=== PATIENT | male | born 1960 | race Caucasian/White ===

== ENCOUNTER 2019-12-01 05:32 | Day surgery (SDC) | payer OTHER ==
[2019-11-24 15:53] LABS: BASOPHILS # (AUTO) 0.1 X10'3 (0-0.2); BASOPHILS % (AUTO) 0.9 % (0-1); EOSINOPHILS # (AUTO) 0.2 X10'3 (0-0.9); EOSINOPHILS % (AUTO) 2.6 % (0-6); LYMPHOCYTES # (AUTO) 1.9 X10'3 (1.1-4.8); LYMPHOCYTES % (AUTO) 30.1 % (21-51); MEAN CORPUSCULAR HEMOGLOBIN 31.7 PG (27.0-31.0); MEAN CORPUSCULAR HGB CONC 33.6 g/dL (33.0-36.5); MEAN CORPUSCULAR VOLUME 94.4 FL (78-98); MEAN PLATELET VOLUME 6.6 FL (7.4-10.4); MONOCYTES # (AUTO) 0.7 X10'3 (0-0.9); MONOCYTES % (AUTO) 11.5 % (2-12); NEUTROPHILS # (AUTO) 3.5 X10'3 (1.8-7.7); NEUTROPHILS % (AUTO) 54.9 % (42-75); PRE OP HEMATOCRIT 47.2 % (42.0-52.0); PRE OP HEMOGLOBIN 15.9 g/dL (14.0-17.9); PRE OP PLATELET COUNT 307 X10'3 (140-440); RED CELL DISTRIBUTION WIDTH 13.7 % (11.5-14.5)
[2019-11-24 16:06] LABS: ALBUMIN 3.8 G/DL (3.4-5.0); ALBUMIN/GLOBULIN RATIO 1.2 (1.1-1.5); ALKALINE PHOSPHATASE 60 IU/L (46-116); BLOOD UREA NITROGEN 21 MG/DL (7-18); BUN/CREATININE RATIO 16.5 (5.4-32.0); CHLORIDE 107 MMOL/L (99-107); CREATININE 1.27 MG/DL (0.60-1.10); PRE OP ALT 21 U/L (30-65); PRE OP ANION GAP 6 (8-16); PRE OP AST 17 U/L (10-37); PRE OP BILIRUB, TOTAL 0.8 MG/DL (0.0-1.0); PRE OP GLUCOSE 96 MG/DL (70-104); PRE OP POTASSIUM 3.9 MMOL/L (3.4-5.1); PRE OP SODIUM 143 MMOL/L (135-145); TOTAL CARBON DIOXIDE 30.1 MMOL/L (24-32); eGFR 58 ML/MIN
[2019-12-01] VITALS (20 sets, daily range): BP systolic 99–132; BP diastolic 60–86
[~2019-12-01] VITALS: Ht 182.9 cm; Wt 81.6 kg
[~2019-12-01 05:32] MED LIST: NO HOME MEDS; ceFAZolin 2gm in dextrose, iso 50 ML IV ONE; famotidine 20mg tablet PO ONE; ringers solution, lacted 1,000 ML IV SCH
[2019-12-01] MEDS ORDERED: LIDOcaine 1% (10mg/ml) 2ml vial ONE (05:55)
[2019-12-01] MEDS ORDERED: LIDOcaine 1% 30ml preserv. free vial ONE (06:39)
[2019-12-01] MEDS ORDERED: BUPIVAcaine/PF 2.5 mg/ml (0.25%) 30ml vial ONE (06:39)
[2019-12-01] MEDS ORDERED: fentaNYL/PF 50MCG/1 ML 2ML syringe ONE (07:17)
[2019-12-01] MEDS ORDERED: midazolam 2 mg/2 ml injection ONE (07:17)
[2019-12-01] MEDS ORDERED: sevoflurane 250ml liquid IH ONE (07:37)
[2019-12-01] MEDS ORDERED: ringers solution, lacted 1,000 ML IV SCH (08:31)
[2019-12-01] MEDS ORDERED: morphine 2 MG/ML inj. syringe IV PRN (08:35)
[2019-12-01] MEDS ORDERED: ondansetron/PF 4mg/2ml inj IV PRN (08:35)
[2019-12-01] MEDS ORDERED: meperidine/PF 25mg/ml syringe IV PRN ×3 (08:35)
[2019-12-01] MEDS ORDERED: morphine 4 MG/ML inj SYRINge IV PRN (08:35)
[2019-12-01] MEDS ORDERED: proCHLORperazine 10 MG/2 ml inj IV PRN (08:35)
[2019-12-01] MEDS ORDERED: bacitracin 15gm ointment TP ONE (09:06)
--- NOTE | 2019-12-01 09:20 | NUR ---
Received from OR via BED , accompanied by Anesthesiologist DR VALENTIN and report given by Anesthesiolgist. PATIENT WAKING UP, DENIES PAIN, V/S WNL, NEUROVASCULAR CHECKS INTACT, 20G PIV RUE, SCD ON, BANDAIDS TO LAP SIGHTS OF ABDOMEN CDI.
[2019-12-01] MEDS ORDERED: HYDROcodone/acetaminophen 5mg/325mg tablet PO PRN (09:35)
[2019-12-01] MEDS ORDERED: neostigmine methylsulfate 1 MG/ML 10ml vial ONE (10:42)
[2019-12-01] MEDS ORDERED: dexamethasone sod phosphate 4mg/ml inj. ONE (10:42)
[2019-12-01] MEDS ORDERED: rocuronium 10mg/ml inj IV ONE (10:42)
[2019-12-01] MEDS ORDERED: LIDOcaine 2% (20mg/ml) 5ml vial ONE (10:42)
[2019-12-01] MEDS ORDERED: propofol inj 20 ML IV ONE (10:42)
[2019-12-01] MEDS ORDERED: ondansetron/PF 4mg/2ml inj ONE (10:42)
[2019-12-01] MEDS ORDERED: glycopyrrolate 0.2mg/ml inj ONE (10:42)
[2019-12-01] MEDS ORDERED: LIDOcaine 2% 10ml TOPICAL JELLY (Urojet) MM ONE (13:05)
--- NOTE | 2019-12-01 13:18 | NUR ---
PATIENT UNABLE TO VOID FOR D/C/ WILL START F/C STRAIGHT CATH AND D/C HOME PER DR LANDERS ORDERS.
--- NOTE | 2019-12-01 13:41 | NUR ---
COUDE 16FRENCH CATH PLACED WITH 500CC OUT SO FAR AND STILL DRAINING URINE. NO COMPLICATIONS OBSERVED AT THIS TIME.
--- NOTE | 2019-12-01 13:47 | NUR ---
PATIENT GIVEN NURSING REFRENCE GUIDE FOR SOL CATH CARE AND MANAGMENT. I HAVE INSTRUCTED HIM VERBALLY AND DEMO HOW TO CARE AND DRAIN CATH WELL. PATIENT HAS VERBALIZED UNDERSTANDING AND EDUCATION PAMPHLET WAS ADDED TO HIS D/C PAPERWORK.
--- NOTE | 2019-12-01 14:00 | NUR ---
PATIENT A&OX4, STATES PAIN WELL CONTROLLED, V/S WNL, NEUROVASCULAR CHECKS INTACT, 20G PIV RUE D/C, SCD OFF, BANDAIDS TO LAP SIGHTS OF ABDOMEN CDI. F/C PLACED DESCRIBED IN PRIOR NOTE. I HAVE REVIEWED D/C INSTRUCTIONS WITH PATIENT AND HE HAS DEMO HOW TO DRAIN F/C AND 550CC EMPTIED. PATIENT D/C HOME WITH ALL BELONGINGS AND WAS GIVEN INSTRUCTION SHEET FOR F/C AND POST OP D/C INSTRUCTIONS FOR HOME. HE WILL RETURN TO DR OFFICE FOR F/C D/C IN [address] PEREZ. HE WAS GIVEN SCRIPT FOR [facility]. HIS GAVE TRANSPORT HOME.
== END 2019-12-01 14:00 | disposition home or self-care (01) ==
LOC: PAS 05:32
PROVIDERS: ATTEND Surgery
DX: K40.90 Unilateral inguinal hernia, without obstruction or gangrene, not specified as recurrent (principal); K42.0 Umbilical hernia with obstruction, without gangrene; D18.01 Hemangioma of skin and subcutaneous tissue; Z79.899 Other long term (current) drug therapy; Z72.89 Other problems related to lifestyle; Z11.59 Encounter for screening for other viral diseases; Z87.442 Personal history of urinary calculi; R20.2 Paresthesia of skin
CPT/HCPCS: 11400; 12031; 36415; 49587; 49650; 80053; 82948; 85025; 93005; C1781; J1100; J2001; J2175; J2250; J2270; J2405; J2704; J2710; J3010; J3490; J7120; S2900; U0003; A4215; A4618

== ENCOUNTER 2022-05-22 06:09 | Day surgery (SDC) | payer OTHER ==
[2022-05-16 14:29] LABS: ALBUMIN 3.6 G/DL (3.4-5.0); ALBUMIN/GLOBULIN RATIO 1.1 (1.1-1.5); ALKALINE PHOSPHATASE 72 IU/L (46-116); BASOPHILS % (AUTO) 0.8 % (0-1); BLOOD UREA NITROGEN 17 MG/DL (7-18); BUN/CREATININE RATIO 14.7 (5.4-32.0); CALCIUM 8.8 MG/DL (8.5-10.1); CHLORIDE 103 MMOL/L (99-107); CREATININE 1.16 MG/DL (0.60-1.10); EOSINOPHILS # (AUTO) 0.1 X10'3 (0-0.9); EOSINOPHILS % (AUTO) 2.8 % (0-6); LYMPHOCYTES # (AUTO) 1.4 X10'3 (1.1-4.8); LYMPHOCYTES % (AUTO) 28.7 % (21-51); MEAN CORPUSCULAR HEMOGLOBIN 31.2 PG (27.0-31.0); MEAN CORPUSCULAR HGB CONC 33.1 g/dL (33.0-36.5); MEAN CORPUSCULAR VOLUME 94.1 FL (78-98); MEAN PLATELET VOLUME 6.5 FL (7.4-10.4); MONOCYTES # (AUTO) 0.6 X10'3 (0-0.9); MONOCYTES % (AUTO) 12.7 % (2-12); NEUTROPHILS # (AUTO) 2.6 X10'3 (1.8-7.7); PRE OP ALT 24 U/L (30-65); PRE OP ANION GAP 5 (8-16); PRE OP AST 23 U/L (10-37); PRE OP BILIRUB, TOTAL 0.6 MG/DL (0.0-1.0); PRE OP GLUCOSE 93 MG/DL (70-104); PRE OP HEMATOCRIT 46.5 % (42.0-52.0); PRE OP HEMOGLOBIN 15.4 g/dL (14.0-17.9); PRE OP PLATELET COUNT 299 X10'3 (140-440); PRE OP POTASSIUM 3.9 MMOL/L (3.4-5.1); PRE OP SODIUM 140 MMOL/L (135-145); RED BLOOD COUNT 4.94 X10'6 (4.70-6.10); RED CELL DISTRIBUTION WIDTH 13.8 % (11.5-14.5); TOTAL CARBON DIOXIDE 31.9 MMOL/L (24-32); TOTAL PROTEIN 6.8 G/DL (6.4-8.2); eGFR 64 ML/MIN
[2022-05-22] VITALS (22 sets, daily range): BP systolic 94–126; BP diastolic 62–82
[~2022-05-22] VITALS: Ht 182.9 cm; Wt 84.3 kg
[~2022-05-22 06:09] MED LIST changes: +FLO0.4C PO; -NO HOME MEDS; -ceFAZolin 2gm in dextrose, iso 50 ML IV ONE; +ceFAZolin inj. 2,000 MG in dextrose 5%-water 100 ML IV ONE
[2022-05-22] MEDS ORDERED: LIDOcaine 1% 30ml preserv. free vial ONE (07:16)
[2022-05-22] MEDS ORDERED: BUPIVAcaine 0.5% inj/PF 30 ML ONE (07:16)
[2022-05-22] MEDS ORDERED: fentaNYL/PF 50MCG/1 ML 2ML syringe ONE (07:53)
[2022-05-22] MEDS ORDERED: rocuronium 10mg/ml inj IV ONE (07:53)
[2022-05-22] MEDS ORDERED: propofol inj 20 ML IV ONE (07:53)
[2022-05-22] MEDS ORDERED: midazolam 1 mg/ML 2ml injection ONE (07:53)
[2022-05-22] MEDS ORDERED: sevoflurane 250ml liquid IH ONE (07:53)
[2022-05-22] MEDS ORDERED: proCHLORperazine 10 MG/2 ml inj IV PRN (08:00)
[2022-05-22] MEDS ORDERED: morphine 4 MG/ML inj SYRINge IV PRN (08:00)
[2022-05-22] MEDS ORDERED: meperidine/PF 25mg/ml syringe IV PRN ×3 (08:00)
[2022-05-22] MEDS ORDERED: ringers solution, lacted 1,000 ML IV SCH (08:00)
[2022-05-22] MEDS ORDERED: ondansetron/PF 4mg/2ml inj IV PRN (08:00)
[2022-05-22] MEDS ORDERED: morphine 2 MG/ML inj. syringe IV PRN (08:00)
[2022-05-22] MEDS ORDERED: BUPIVAcaine 0.5% inj/PF 30 ml vial IJ ONE (08:15)
[2022-05-22] MEDS ORDERED: ondansetron/PF 4mg/2ml inj ONE (09:03)
[2022-05-22] MEDS ORDERED: dexamethasone sod phosphate 4mg/ml inj. ONE (09:03)
[2022-05-22] MEDS ORDERED: acetaminophen 1,000mg/100ml IV 100 ML IV ONE (09:18)
[2022-05-22] MEDS ORDERED: sugammadex 200mg/2ml injection IV ONE (09:20)
[2022-05-22] MEDS ORDERED: HYDROcodone/acetaminophen 5mg/325mg tablet PO PRN (09:35)
--- NOTE | 2022-05-22 09:41 | NUR ---
Received from OR via [facility] [place], accompanied by Anesthesiologist DR DING and report given by Anesthesiolgist. PT PLACED ON BEDSIDE MONITOR, VAA. PT IS IN SR WITH RATE IN 70'S. PT IS RECEIVING 10L 02 AND TOLERATING WELL WITH O2 SAT >97%, WILL TITRATE DOWN AT PT TOLERATES. PT IS GROGGY BUT RESPONDS TO VERBAL STIMULI AND NODS HEAD APPROPRIATELY. PT IS ABLE TO LYONS. PT HAS 20G PIV LT WRIST WITH LR INFUSING ORDERED. PT HAS BANDAIDS X3 TO MID ABD THAT ARE ALL CDI. PT IS RESTING WITH NO Z/Z OF DISTRESS, DENIES PAIN AT THIS TIME. WILL CONTINUE TO ASSES
--- NOTE | 2022-05-22 12:00 | NUR ---
PT OFF MONITOR TO USE RESTROOM. BLADDER SCAN PERFORMED AND >442ML IN BLADDER. WILL RE-SCAN AFTER PT ATTEMPTS TO VOID
--- NOTE | 2022-05-22 13:18 | NUR ---
PT UNABLE TO VOID AFTER MULTIPLE ATTEMPTS, BLADER SCAN STILL SHOWING >430ML. NURSING ATTEMPTED TO PLACE A SOL CATH WITH NO SUCCESS, COUDE WAS ATTEMPTED WELL AND STILL NOT ABLE TO ADVANCE, MET RESISTANCE AND PT VERY UNCOMFORTABLE. DR PEREZ MADE AWARE AND WILL CONTINUE TO ASSESS.
--- NOTE | 2022-05-22 14:00 | NUR ---
PT SENT TO PASS WHILE AWAITING FOR UROLOGY.
--- NOTE | 2022-05-22 14:10 | NUR ---
received pt in stable condition, unable to urinate, pt given water, bladder scaned for 400 cc of urine. awaiting urologist dr gatica
--- NOTE | 2022-05-22 15:00 | NUR ---
pt up and about walking, trying to urinate with no results, vital signs stable
--- NOTE | 2022-05-22 16:00 | NUR ---
dr gatica arrive, 18 fr coude mcclain inserted with mild difficulty. pt given specific instructions to care for mcclain. at bedside also received instructions. dr gatica told pt that his office would call the patient for an appointment on saturday. pt leaving for [place] on saturday.
--- NOTE | 2022-05-22 16:35 | NUR ---
iv d/boston catheter intact, taken via wheelchair to from [address] where pt's drove him home pt and verbalized understanding of instructions
== END 2022-05-22 16:35 | disposition home or self-care (01) ==
LOC: PAS 06:09
PROVIDERS: ATTEND Surgery
DX: K42.9 Umbilical hernia without obstruction or gangrene (principal); K40.90 Unilateral inguinal hernia, without obstruction or gangrene, not specified as recurrent; N40.1 Benign prostatic hyperplasia with lower urinary tract symptoms; R33.8 Other retention of urine; Z87.442 Personal history of urinary calculi; Z98.890 Other specified postprocedural states; Z79.899 Other long term (current) drug therapy
CPT/HCPCS: 36415; 49585; 49650; 51702; 80053; 82948; 85025; 93005; C1781; J0131; J0690; J1100; J2250; J2270; J2405; J2704; J3010; J3490; J7030; J7060; J7120; S0020; S2900; Z7506; Z7508; Z7512; A4215; A4618